=== PATIENT | female | born 1940 | race Caucasian/White ===

== ENCOUNTER 2016-07-22 14:00 | Outpatient (RCR) ==
[2014-11-23 01:57] VITALS: BMI 22.6
--- NOTE | 2016-07-20 14:29 | RS.OPPTEV2 ---
Date of Note: 07/20/16 Visit #: 1 Date of Evaluation: 07/20/16 Payer Source: MEDICARE Date of Onset/Injury/Change in Status: 06/27/15 Surgery Performed?: No Treatment Diagnosis: Neck pain History of Condition/Mechanism of Injury:: Patient states she has been having neck pain since she has been 21 yrs old. She states she has SINGH everyday but the intensity varies. This pain has began to worsen over the past yr. 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 He in January 2016. Her right shoulder also has pain and this occurred in the past 2 yrs. She also has tingling in the right hand. 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 She had OT with symptoms unable to be reversed. Prior Level of Function.....Patient was independent with: ADL's, Self Care, Work /Vocation, Caregiving, Ambulation/Mobility, Community Integration/Access Functional Limitations: Sleep, Self Care, ADL's, Reaching, Pushing, Pulling, Lifting, Carrying, Sitting, Bending, Squatting, Ambulation, Community Access/ Integration Current Subjective/complaints:: I am getting worse and I need some help. Treatment Side (optional): Right Medical History Medical History: Unremarkable, Arthritis Surgical History: Cholecystectomy, Hysterectomy, Other Surgical History Comments:: Tumor removed from her uterus years ago. It was benign. Smoking Status: Former smoker Pain Assessment - Pain Description Pain Location: Neck and right shoulder pain. Pain Description: Burning, Throbbing, Aching Pain Description: Constant pain Current Pain Intensity: 6/10 Worst Pain Intensity: 12/10 Functional Outcome Measure Neck Disability Index: 18 (36%) - G Codes & Severity Modifier G Codes & Modifier: Eval - Carrying, Moving & Handline Objects - CJ. Goal - CI Source of G Code score: NDI Observation - Observation Posture: Rounded Shoulders, Decreased Cervical Lordosis Handedness: Right General Range of Motion: BUEs are WNLs Muscle Strength: MMT of BUEs reveals increased pian with testing so this was not continued. - ROM Cervical Flexion: 12 (degrees) Cervical Extension: 5 (degrees) Cervical Spine Range of Motion Limitations: Pain - Strength Comments: Decreased pain with distraction. Airworthiness Inspector Strength Left Hand Airworthiness Inspector Strength: 35# Right Hand Airworthiness Inspector Strength: 15# Palpation Palpation Findings: Tenderness (Tenderness over the cervical and upper trap muscles as well as right rhomboid area.), Trigger Point (right middle trap and right levator scapulae ) Sensation - Sensation Right Upper Extremity: Impaired Left Upper Extremity: Impaired Sensation Description: [place] Comments: Right hand is worse than the left. - Traction Treatment Method: Manual Patient Position: Supine Duration of treatment: 10 Interventions - Exercise/Activities/Manual Therapy Exercises/Activities: NA Manual Therapy: Manual cervical traction and cervical lateral glides with decreased movement on the left. 1st rib mobilization on the right also performed. Pt reports complete relief of pain following manual therapy. Total minutes of Manual Therapy: 18 - Charges Total Direct Minutes: 20 Total Treatment Time: 60 Procedures billed for this date of service:: PT Eval (Mod) & manual therapy Assessment Assessment: Neck and right shoulder pain, decreased CROM, weakness of neck and shoulders. Patient Education: Education of diagnosis, Body/Joint mechanics, Activity Modification, Education of Plan of Care Rehab Potential: Good Short Term Goals Goal #1: Patient having SINGH less than daily. Goal to be met by: 08/06/16 Goal #2: Sleep disturbance is only minimal. Goal to be met by: 08/06/16 Goal #3: Patient is independent in basic CROM ex. Goal to be met by: 08/06/16 Goal #4: Eliminate right shoulder pain. Goal to be met by: 08/06/16 Radiation Oncology Nurse Goals Goal #1: Sleep without interruption of pain. Goal to be met by: 09/03/16 Goal #2: CROM WFLs Goal to be met by: 09/03/16 Goal #3: Cervical strength 4+/5 in all planes to decrease neck fatigue. Goal to be met by: 09/03/16 Goal #4: Independent with DC HEP to maintain status. Goal to be met by: 09/03/16 Plan - Treatment to be Provided Procedures: Therapeutic Exercises, Therapeutic Activity, Manual Therapy, Massage , Patient Education Modalities: Electrical Stimulation, Ultrasound/Phonophoresis, Class IV Laser, Cryotherapy, Hot Packs, Mechanical Traction - Treatment Plan Frequency: 2 X week Duration: 6 weeks ORDER # VISITS AND/OR THROUGH DATE: 09/03/2016 - Treatment Code (1) Cervical radiculopathy Comments: M54.12
--- NOTE | 2016-07-22 16:08 | RS.OPPTDN ---
Subjective Date of Note: 07/22/16 Visit #: 2 Date of Evaluation: 07/20/16 Payer Source: MEDICARE Treatment Diagnosis: Neck pain Current Subjective/complaints:: Patient says her neck pain is unchanged. States that she has had a SINGH for two days. Reports she uses heat at home for pain relief. Pain Assessment - Pain Description Pain Location: C/c is SINGH. Neck and right shoulder pain. Pain Description: Burning, Throbbing, Aching Pain Description: Constant pain Current Pain Intensity: 6/10 - Treatment Modality: Ultrasound Parameters/Method Applied: 1.5 w/cm2 x 10 mins bilateral UT continuous Patient Position: Sitting - Heat/Cryotherapy Treatment: Hot Pack (15 mins cervical in supine) Interventions - Exercise/Activities/Manual Therapy Exercises/Activities: NA Manual Therapy: Patient received manual cervical traction and passive stretching /STM for UT. 16 mins - Charges Total Direct Minutes: 26 Total Treatment Time: 41 Procedures billed for this date of service:: MT, u/s, HP Assessment: Patient experiencing mod neck pain bilaterally with SINGH lasting 2 days. Since treatment today, she admits improved pain and ISNGH intensity. She should continue to benefit from modalities and manual therapy. Patient Education: Education of diagnosis, Body/Joint mechanics, Home Exercise Program, Home Safety, Activity Modification, Education of Plan of Care Short Term Goals Goal #1: Patient having SINGH less than daily. Goal to be met by: 08/06/16 Goal #2: Sleep disturbance is only minimal. Goal to be met by: 08/06/16 Goal #3: Patient is independent in basic CROM ex. Goal to be met by: 08/06/16 Goal #4: Eliminate right shoulder pain. Goal to be met by: 08/06/16 Jail Goals Goal #1: Sleep without interruption of pain. Goal to be met by: 09/03/16 Goal #2: CROM WFLs Goal to be met by: 09/03/16 Goal #3: Cervical strength 4+/5 in all planes to decrease neck fatigue. Goal to be met by: 09/03/16 Goal #4: Independent with DC HEP to maintain status. Goal to be met by: 09/03/16 Plan PLAN OF CARE EXPIRES ON:: 09/03/16 ORDER # VISITS AND/OR THROUGH DATE: 09/03/2016 PLAN: Continue Plan of Care
--- NOTE | 2016-07-26 14:26 | RS.CXNS ---
Date of scheduled appointment: 07/26/16 Type: No Show
== END 2016-07-27 ==
PROVIDERS: ATTEND Physician Assistant Surgical
DX: M54.2 Cervicalgia (principal)

== ENCOUNTER 2016-08-06 13:00 | Outpatient (RCR) ==
[2014-11-23 01:57] VITALS: BMI 22.6
--- NOTE | 2016-07-28 15:25 | RS.CXNS ---
Date of scheduled appointment: 07/28/16 Type: Cancel Reason for Cancel/NS: sick
--- NOTE | 2016-07-30 16:34 | RS.OPPTDN ---
Subjective Date of Note: 07/30/16 Visit #: 3 Date of Evaluation: 07/20/16 Payer Source: MEDICARE Treatment Diagnosis: Neck pain Current Subjective/complaints:: Patient says her neck "feels weird" since she was sick last week and has not had a treatment since 07/22/16. She says treatment was helpful though for about one day. Pain Assessment - Pain Description Pain Location: C/c is SINGH. Neck and right shoulder pain. Pain Description: Constant pain Current Pain Intensity: Does not rate - Treatment Modality: Ultrasound Parameters/Method Applied: 1.5 w/cm2 x 10 mins bilateral UT in sitting Patient Position: Sitting - Heat/Cryotherapy Treatment: Hot Pack (cervical x 15 mins supine) Interventions - Exercise/Activities/Manual Therapy Exercises/Activities: NA Manual Therapy: Patient received manual cervical traction and passive stretching /STM for UT. 16 mins - Charges Total Direct Minutes: 26 Total Treatment Time: 41 Procedures billed for this date of service:: hp, u/s, MT Assessment: Patient admitted near full relief of pain upon her previous session and also experiences significant relief today. She demo tightness to bilateral UT today, but eases with modalities/MT. Patient should continue to improve next week. Patient Education: Education of diagnosis, Body/Joint mechanics, Home Exercise Program, Home Safety, Activity Modification, Education of Plan of Care Patient demonstrates compliance with HEP?: Yes Short Term Goals Goal #1: Patient having SINGH less than daily. Goal to be met by: 08/06/16 Goal #2: Sleep disturbance is only minimal. Goal to be met by: 08/06/16 Goal #3: Patient is independent in basic CROM ex. Goal to be met by: 08/06/16 Goal #4: Eliminate right shoulder pain. Goal to be met by: 08/06/16 Bag Liner Goals Goal #1: Sleep without interruption of pain. Goal to be met by: 09/03/16 Goal #2: CROM WFLs Goal to be met by: 09/03/16 Goal #3: Cervical strength 4+/5 in all planes to decrease neck fatigue. Goal to be met by: 09/03/16 Goal #4: Independent with DC HEP to maintain status. Goal to be met by: 09/03/16 Plan PLAN OF CARE EXPIRES ON:: 09/03/16 ORDER # VISITS AND/OR THROUGH DATE: 09/03/2016 PLAN: Continue Plan of Care
--- NOTE | 2016-08-02 15:31 | RS.OPPTDN ---
Subjective Date of Note: 08/02/16 Visit #: 4 Date of Evaluation: 07/20/16 Payer Source: MEDICARE Treatment Diagnosis: Neck pain Current Subjective/complaints:: Patient says this is the first time in a long time that she has not had daily SINGH's. She says she is pleased she is improving , but still has some "tender spots" to the R UT and mid scapula. Pain Assessment - Pain Description Pain Location: Neck and right shoulder pain. Pain Description: Constant pain Current Pain Intensity: Does not rate - Treatment Modality: Ultrasound Parameters/Method Applied: 1.5 w/cm2 continuous to the bilateral UT, more to the R x 12 mins Patient Position: Sitting - Heat/Cryotherapy Treatment: Hot Pack (20 mins to the cervical sitting) Interventions - Exercise/Activities/Manual Therapy Exercises/Activities: NA Manual Therapy: Patient received Trigger point work throughout the bilateral UT and rhomboids. She received passive stretching into SB, rotation. She performs shoulder shrugs and isometric cervical retraction 2x5. Total minutes of Manual Therapy: 15 - Charges Total Direct Minutes: 27 Total Treatment Time: 47 Procedures billed for this date of service:: hp, u/s, MT Assessment: Patient no longer having daily SINGH's, which she is very pleased about. She continues to demo mod muscle guarding to bilateral UT with 2-3 trigger points to the R side. She demo FHP and would benefit from continued postural exercises and modalities/MT. Patient Education: Education of diagnosis, Body/Joint mechanics, Home Exercise Program, Home Safety, Activity Modification, Education of Plan of Care Patient demonstrates compliance with HEP?: Yes Short Term Goals Goal #1: Patient having SINGH less than daily. Goal to be met by: 08/06/16 Progress towards Goal:: Progressing Goal #2: Sleep disturbance is only minimal. Goal to be met by: 08/06/16 Progress towards Goal:: Progressing Goal #3: Patient is independent in basic CROM ex. Goal to be met by: 08/06/16 Goal #4: Eliminate right shoulder pain. Goal to be met by: 08/06/16 Him Coder Goals Goal #1: Sleep without interruption of pain. Goal to be met by: 09/03/16 Goal #2: CROM WFLs Goal to be met by: 09/03/16 Goal #3: Cervical strength 4+/5 in all planes to decrease neck fatigue. Goal to be met by: 09/03/16 Goal #4: Independent with DC HEP to maintain status. Goal to be met by: 09/03/16 Plan PLAN OF CARE EXPIRES ON:: 09/03/16 ORDER # VISITS AND/OR THROUGH DATE: 09/03/2016 PLAN: Continue Plan of Care
--- NOTE | 2016-08-06 15:57 | RS.OPPTDN ---
Subjective Date of Note: 08/06/16 Visit #: 5 Date of Evaluation: 07/20/16 Payer Source: MEDICARE Treatment Diagnosis: Neck pain Current Subjective/complaints:: Patient states she was doing better, but recently had an increase in pain to her neck. Reports continued decrease in SINGH' s and is sleeping better. Pain Assessment - Pain Description Pain Location: Neck and right shoulder pain. Pain Description: more intermittent pain now Current Pain Intensity: Does not rate - Treatment Modality: Ultrasound Parameters/Method Applied: continuous @ 1.5 w/cm2 x 12 mins to the Bilateral UT and R shoulder x 5 mins in sitting. - Heat/Cryotherapy Treatment: Hot Pack (cervical in sitting x 15) Interventions - Exercise/Activities/Manual Therapy Exercises/Activities: NA Manual Therapy: Patient received Trigger point work throughout the bilateral UT and rhomboids. She received passive stretching into SB, rotation. She performs shoulder shrugs and isometric cervical retraction 2x5. Total minutes of Manual Therapy: 16 - Charges Total Direct Minutes: 33 Total Treatment Time: 48 Procedures billed for this date of service:: hp, u/s, MT Assessment: Patient experiencing less frequency of SINGH's and neck pain, but recently had an increase in neck pain and R shoulder pain today for unknown reasons. She has several trigger points to the R rhomboids and UT that were relieved with MT today. Patient Education: Education of diagnosis, Body/Joint mechanics, Home Exercise Program, Home Safety, Activity Modification, Education of Plan of Care Patient demonstrates compliance with HEP?: Yes Short Term Goals Goal #1: Patient having SINGH less than daily. Goal to be met by: 08/06/16 Progress towards Goal:: Progressing Goal #2: Sleep disturbance is only minimal. Goal to be met by: 08/06/16 Progress towards Goal:: Progressing Goal #3: Patient is independent in basic CROM ex. Goal to be met by: 08/06/16 Goal #4: Eliminate right shoulder pain. Goal to be met by: 08/06/16 Retirement Goals Goal #1: Sleep without interruption of pain. Goal to be met by: 09/03/16 Progress towards goal: Progressing Goal #2: CROM WFLs Goal to be met by: 09/03/16 Progress towards goal: Progressing Goal #3: Cervical strength 4+/5 in all planes to decrease neck fatigue. Goal to be met by: 09/03/16 Goal #4: Independent with DC HEP to maintain status. Goal to be met by: 09/03/16 Plan PLAN OF CARE EXPIRES ON:: 09/03/16 ORDER # VISITS AND/OR THROUGH DATE: 09/03/2016 PLAN: Continue Plan of Care
--- NOTE | 2016-08-10 11:09 | RS.CXNS ---
Date of scheduled appointment: 08/10/16 Type: Cancel Reason for Cancel/NS: sick
--- NOTE | 2016-08-13 08:33 | RS.CXNS ---
Date of scheduled appointment: 08/13/16 Type: Cancel Reason for Cancel/NS: Patient calls saying her mother is in the hospital and will be having surgery. She says she needs to be with her right now and was told to call back and we will try to re start her therapy with new dates if able.
== END 2016-08-24 ==
PROVIDERS: ATTEND Physician Assistant Surgical
DX: M54.2 Cervicalgia (principal)

== ENCOUNTER 2016-08-22 10:11 | Emergency (ER) ==
[2016-08-22 10:16] VITALS: BP 194/80; TEMP 97.7; BMI 28.7
--- NOTE | 2016-08-22 10:35 | ED.PDOC ---
General ED Provider: Dr. SIMONE YAO Chief Complaint: Head Injury Stated Complaint: Slipped and fell at home hurt head and neck, also pain right hip, did not LOC, Time Seen by Physician: 10:33 Mode of Arrival: Walk-In Information Source: Patient Primary Care Provider: CATHIE BRISCOE Nursing and Triage Documentation Reviewed and Agree: Yes Trauma/Injury Complaint Exam - Head Injury Complaint/Exam Location of Pain: Reports: Scalp Mechanism of Injury: Reports: Trauma Symptoms Are: Still present Initial Severity: Mild Current Severity: Mild Character: Reports: Dull Aggravating: Reports: None Alleviating: Reports: None Associated Signs and Symptoms: Reports: Neck pain. Denies: Confusion, Memory loss, Seizure, Epistaxis, Dental malocclusion, Nausea, Vomiting Loss of Consciousness: None SDH Risk Factors: Present: None Cervical Spine Injury Risk Factors: Present: None Related Surgical History: Reports: None Head Injury Findings: Present: Normal findings Focal Weakness: Present: None Focal Sensory Loss: Present: None Gait: Normal Gag Reflex Present: No Finger to Nose: Normal Rhomberg Test Positive: Yes Babinski Sign: Negative Right, Negative Left Differential Diagnoses: Sprain, Trauma Review of Systems - Review Of Systems Constitutional: Reports: No symptoms Eyes: Reports: No symptoms Ears, Nose, Mouth, Throat: Reports: No symptoms Respiratory: Reports: No symptoms Cardiac: Reports: No symptoms GI: Reports: No symptoms : Reports: No symptoms Musculoskeletal: Reports: Joint pain Skin: Reports: No symptoms Neurological: Reports: No symptoms Endocrine: Reports: No symptoms Hematologic/Lymphatic: Reports: No symptoms All Other Systems: Reviewed and Negative Past Medical History - Past Medical History Previously Healthy: No Endocrine: Reports: Dyslipidemia Cardiovascular: Reports: Hypertension Respiratory: Reports: None Hematological: Reports: None Gastrointestinal: Reports: None Genitourinary: Reports: None Neuro/Psych: Reports: Anxiety Musculoskeletal: Reports: Back Pain, Joint Pain Cancer: Reports: None Last Menstrual Period: n/a - Surgical History General Surgical History: Reports: None - Family History Family History: Reports: None - Social History Smoking Status: Never smoker Hx Substance Use: No Alcohol Screening: None Physical Exam - Physical Exam Appearance: Well-appearing, No pain distress, Well-nourished Eyes: EMMETT, EOMI, Conjunctiva clear ENT: Ears normal, Nose normal, Oropharynx normal Respiratory: Airway patent, Breath sounds clear, Breath sounds equal, Respirations nonlabored Cardiovascular: RRR, Pulses normal, No rub, No murmur GI/: Soft, Nontender, No masses, Bowel sounds normal, No Organomegaly Musculoskeletal: Normal strength, ROM intact, No edema, No calf tenderness Skin: Warm, Dry, Normal color Neurological: Sensation intact (hematoma back of the head, ), Motor intact, Reflexes intact, Cranial nerves intact, Alert, Oriented Psychiatric: Affect appropriate, Mood appropriate Interpretation - Radiology Interpretation Radiology Interpretation By: Radiologist Exam Interpreted: CT Scan Critical Care Note - Critical Care Note Total Time (mins): 0 Course - Course Orders, Labs, Meds: Orders Category Date Time Status CT CERVICAL SPINE W/O CONTRAST Stat RADS 08/22/16 10:[address] HEAD W/O CONTRAST Stat RADS 08/22/16 10:[address] HIP RIGHT WITHOUT CONTRAST Stat RADS 08/22/16 10:32 Completed Vital Signs: Temp Pulse Resp BP Pulse Ox 08/22/16 10:13 97.7 F 100 H 20 194/80 H 97 Departure - Departure Time of Disposition: 11:18 Disposition: HOME SELF-CARE Discharge Problem: Injury of head Instructions: Fall Prevention for Older Adults (ED) Condition: Stable Pt referred to PMD for follow-up: Yes Additional Instructions: rest if not better needs f/u Allergies/Adverse Reactions: Allergies [facility] Adverse Reaction (Verified 08/22/16 10:22) lisinopril Adverse Reaction (Verified 08/22/16 10:22) morphine Adverse Reaction (Verified 10/11/13 13:36) Sulfa (Sulfonamide Antibiotics) Adverse Reaction (Verified 10/11/13 13:36) Home Medications: Ambulatory Orders Alprazolam [Xanax] 0.5 mg PO BID 10/11/13 Cholecalciferol (Vitamin D3) [Vitamin D] 1,000 unit PO DAILY 10/11/13 Folic Acid 0.4 mg PO DAILY 10/11/13 Hydrochlorothiazide 12.5 mg PO DAILY PRN 10/11/13 Meloxicam [Meloxicam] 7.5 mg PO DAILY 10/11/13 Aspirin 81 mg PO DAILY 08/22/16 Hydrocodone Bit/Acetaminophen [[place] 7.5-325] 1 tab PO BID 08/22/16 Disposition Discussed With: Patient, Family
--- NOTE | 2016-08-22 11:03 | CT ---
EXAM: CT head without contrast HISTORY: Trauma COMPARISON: Brain MRI from 05/24/2016 TECHNIQUE: Helical axial CT of the head was performed without contrast. Coronal and sagittal reconst ructions were performed. FINDINGS: There is no hemorrhage, mass, midline shift, abnormal extra-axial fluid collection, hydrocephalus or evolving ischemia. The tracy-white matter junction is well maintained. There is some mild generalize d atrophy present. Brain parenchyma ventricles and sulci are otherwise normal. There are no acute calvarial lesions. Visualized orbits and globes are unremarkable. The mastoid a ir cells demonstrate no significant soft tissue opacification. The visualized paranasal sinuses show no air-fluid levels. IMPRESSION: No acute intracranial abnormality.
--- NOTE | 2016-08-22 11:06 | CT ---
CT cervical spine without contrast HISTORY: Injury and pain TECHNIQUE: CT of the cervical spine with multiplanar reformations. FINDINGS: Reformatted images demonstrate normal alignment with preservation of vertebral body heigh t. No significant degenerative change. No fracture seen on the axial or reformatted images. No acut e surrounding soft tissue abnormalitites. Lung apices are clear. IMPRESSION: No acute findings in the cervical spine.
--- NOTE | 2016-08-22 11:13 | CT ---
EXAM: CT of the hip without contrast TECHNIQUE: Helical axial CT of the right hip was performed without contrast with coronal and sagitt al reconstructions. COMPARISON: Plain film of the right hip from 08/27/2013 HISTORY: Trauma FINDINGS: There is no hip fracture identified. Alignment is anatomic. There is no dislocation. T here is fair amount of degenerative change noted involving the right hip joint. The acetabulum is i ntact and the pubic rami are intact as well. There is no evidence for pelvic hematoma. No acute sof t tissue abnormalities are present. There is atherosclerotic vascular calcifications noted. There is degenerative changes seen in the lower lumbar region partially visualized. IMPRESSION: No acute fracture of the right hip.
== END 2016-08-22 11:47 | disposition home or self-care (01) ==
LOC: ED 10:11
DX: S09.90XA Unspecified injury of head, initial encounter (principal); S19.9XXA Unspecified injury of neck, initial encounter; M25.551 Pain in right hip; W01.0XXA Fall on same level from slipping, tripping and stumbling without subsequent striking against object, initial encounter
CPT/HCPCS: 99283

== ENCOUNTER 2017-03-04 10:30 | Outpatient (CLI) ==
--- NOTE | 2017-03-04 12:18 | MAMMO ---
EXAM: Digital screening mammogram HISTORY: Screening COMPARISON: 10/27/2015 FINDINGS: Digital MLO and CC views of the right and left breast were performed. Computer aided det ection was utilized. There are scattered fibroglandular densities. There is no evidence for mass, a symmetry, distortion, or suspicious calcifications in either breast. IMPRESSION: 1. No evidence of malignancy in the right or left breast. 2. Annual screening mammogram is recommended in one year. BIRADS category 1, negative examination
== END 2017-03-04 10:31 | disposition home or self-care (01) ==
LOC: RAD 10:30
PROVIDERS: ATTEND Internal Medicine
DX: Z12.31 Encounter for screening mammogram for malignant neoplasm of breast (principal)
CPT/HCPCS: 77067

== ENCOUNTER 2017-03-29 10:22 | Outpatient (CLI) | payer OTHER ==
--- NOTE | 2017-03-29 11:10 | DEXA ---
EXAM: DEXA scan. HISTORY: Osteoporosis. COMPARISON: 10/15/2014. TECHNIQUE: Swipely Primo [id number]. DEXA scan lumbar spine performed. Quality of the study is good. BMD is 1.302 grams per square centi meter. T-score 1.0. Z-score 2.5. DEXA scan hips performed. Quality of the study is good. BMD 0.736 grams per square centimeter. T-sc ore -2.2. Z-score -0.6. IMPRESSION: According to the World Health Organization classification, lumbar spine bone mineral density is rena l. Hip bone mineral density demonstrates osteopenia, with increased fracture risk. Ten-year major o steoporotic fracture risk is 13.9%. Ten-year hip fracture risk is 3.7%. Since the prior study, ther e has been no significant interval change.
== END 2017-03-29 10:23 | disposition home or self-care (01) ==
LOC: RAD 10:22
PROVIDERS: ATTEND Internal Medicine
DX: M81.0 Age-related osteoporosis without current pathological fracture (principal)

== ENCOUNTER 2017-05-11 11:59 | Outpatient (CLI) ==
[2017-05-11 13:19] LABS: BASOPHILS # (AUTO) 0.1 K/uL (0-0.2); HEMATOCRIT 41.1 % (37.0-47.0); HEMOGLOBIN 13.5 g/dl (12.0-16.0); IMMATURE GRANULOCYTE % (AUTO) 0.4 % (0.0-5.0); LYMPHOCYTES # (AUTO) 1.9 K/uL (0.60-3.4); LYMPHOCYTES % (AUTO) 18.9 (10.0-50.0); MEAN CORPUSCULAR HEMOGLOBIN 27.6 pg (27.0-31.0); MEAN CORPUSCULAR HGB CONC 32.8 (31.8-35.4); MONOCYTES # (AUTO) 0.8 K/uL (0.4-2.0); MONOCYTES % (AUTO) 7.5 (0-10); NEUTROPHILS # (AUTO) 7.4 K/ul (2.0-6.9); NEUTROPHILS % (AUTO) 72.2; PLATELET COUNT 482 10^3/uL (140-440); RED BLOOD COUNT 4.89 10^6/ul (4.20-5.40); WHITE BLOOD COUNT 10.19 K/ul (4.6-10.2)
--- NOTE | 2017-05-11 13:25 | US ---
EXAM: ULTRASOUND CAROTID DUPLEX, BILATERAL HISTORY: Dizziness, weakness FINDINGS: Fuentes-scale ultrasound, color Doppler and spectral analysis was performed. Velocities are in meters per second. By fuentes scale and color Doppler imaging, there was prominent heterogeneous atherosclerotic plaque dep osition bilaterally mainly within the carotid bulbs and proximal internal carotid arteries measuring up to at least 50% vessel diameter on the right. RIGHT: External carotid artery peak systolic velocity: 1.2 Common carotid artery peak systolic velocity/end diastolic velocity: 0.6/0.2 Internal carotid artery peak systolic velocity: 1.5 ICA/CCA peak systolic velocity ratio: 2.4 ICA end diastolic velocity: 0.3 LEFT: External carotid artery peak systolic velocity: 1.4 Common carotid artery peak systolic velocity/end diastolic velocity: 0.8/0.1 Internal carotid artery peak systolic velocity: 1.3 ICA/CCA peak systolic velocity ratio: 1.6 ICA end diastolic velocity: 0.2 The right and left vertebral arteries were antegrade. IMPRESSION: 1. By fuentes scale and color Doppler imaging, there was prominent heterogeneous atherosclerotic plaque deposition bilaterally mainly within the carotid bulbs and proximal internal carotid arteries measur ing up to at least 50% vessel diameter on the right. 2. Right internal carotid artery peak systolic velocity of 1.5 meters per second falls within the mo derate range of stenosis. Moderate indicates 50 - 69% vessel diameter. The right-sided ICA/CCA peak systolic velocity ratio 2.4 correlates with this. 3. No definite hemodynamically significant stenosis within the left carotid system. 4. Both vertebral arteries were antegrade.
[2017-05-11 14:57] LABS: ALBUMIN 3.6 g/dL (3.4-5.0); ALBUMIN/GLOBULIN RATIO 1.09; ANION GAP 10.5; BILIRUBIN,TOTAL 0.42 mg/dL (0.00-1.20); BUN/CREATININE RATIO 18.51; CALCIUM 10.2 mg/dL (8.2-10.2); CHOL/HDL RATIO 3.3 (4.5-5.5); CREATININE 0.81 mg/dL (0.60-1.30); POTASSIUM 3.5 mmol/L (3.5-5.10); TOTAL PROTEIN 6.9 g/dL (5.8-8.1)
--- NOTE | 2017-05-11 16:58 | MRI ---
EXAM: Brain MRI without contrast. HISTORY: Dizziness and giddiness. COMPARISON: Head CT 08/02/2078 brain MRI with 05/24/2016. TECHNIQUE: Multiplanar, multisequence MR images were acquired of the brain without contrast. FINDINGS: The midline structures are central and the craniocervical junction is unremarkable. There is mild enlargement of the subarachnoid space over both frontal lobes at the convexity. The ventric les are normal in size. The sulci and cerebellar fissures are prominent. These findings are compati ble with age related involutional changes. The brain parenchyma has no restricted diffusion to suggest acute hypoperfusion or infarction. Small T2 hyperintensities are present in the supratentorial white matter compatible with minor to mild rich komalacia. A few dilated perivascular spaces are noted in the parietal occipital periventricular whi te matter. The corpus callosum has a normal configuration. The pituitary gland is low normal in siz e. There are no intraorbital masses. There has been previous lens surgery bilaterally. Mild mucosal thickening is present in the a minor number of the right mastoid air cells. The paranas al sinuses and left mastoid air cells are clear. Flow voids are present in the major intracranial arteries and dural venous sinuses. IMPRESSION: 1. No intracranial mass, hemorrhage or acute cerebral infarct. 2. Age related involutional changes and minor to mild chronic ischemic small vessel disease.
== END 2017-05-11 12:00 | disposition home or self-care (01) ==
LOC: RAD 11:59
PROVIDERS: ATTEND Emergency Medicine
DX: R42 Dizziness and giddiness (principal); I10 Essential (primary) hypertension
CPT/HCPCS: 36415; 80053; 80061; 84443; 85025

== ENCOUNTER → 2017-05-25 | Outpatient (POV) | LOC: OUTPT 00:01 | PROVIDERS: ATTEND Otolaryngology | DX: R42 Dizziness and giddiness (principal) | CPT/HCPCS: 92557; 92567 ==

== ENCOUNTER 2017-09-09 13:15 | Outpatient (CLI) | END 2017-09-09 13:16 | disposition home or self-care (01) | LOC: RHC 13:15 → RHC-LAB 13:16 | PROVIDERS: ATTEND Emergency Medicine | DX: E78.5 Hyperlipidemia, unspecified (principal); I10 Essential (primary) hypertension; M47.26 Other spondylosis with radiculopathy, lumbar region; R10.84 Generalized abdominal pain; Z20.5 Contact with and (suspected) exposure to viral hepatitis | CPT/HCPCS: 36415; 80053; 80061; 80074; 84443; 85025 ==

== ENCOUNTER 2017-11-18 08:55 | Outpatient (CLI) | payer OTHER ==
[2017-11-18] MEDS ORDERED: RECLAST 5 MG/100 ML SOLUTION 5 MG in PREMIX INFUSION 100 ML VIAL 1 VIAL IV ONE (10:33)
[2017-11-18 10:41] VITALS: BP 160/92; TEMP 97.8
== END 2017-11-18 11:35 | disposition home or self-care (01) ==
LOC: OPMED 08:55
PROVIDERS: ATTEND Emergency Medicine
DX: M81.0 Age-related osteoporosis without current pathological fracture (principal); I10 Essential (primary) hypertension
CPT/HCPCS: 36415; 80053; 96365

== ENCOUNTER 2018-03-14 10:16 | Outpatient (CLI) ==
--- NOTE | 2018-03-15 10:31 | MAMMO ---
EXAM: Bilateral digital screening mammogram (2-D and 3-D) History: Screening Comparison: Bilateral mammogram 03/04/2017 Findings: MLO and CC views of bilateral breasts demonstrate scattered fibroglandular breast parenchy ma. CAD was reviewed by the radiologist. Tomosynthesis was performed. Stable benign bilateral daniel st calcifications. There are no dominant masses, no suspicious microcalcifications and no architectu ral distortions Impression: Benign stable mammogram. Recommend followup routine screening mammography in 1 year. BIRADS 2
== END 2018-03-14 10:17 | disposition home or self-care (01) ==
LOC: RAD 10:16
PROVIDERS: ATTEND Emergency Medicine
DX: Z12.31 Encounter for screening mammogram for malignant neoplasm of breast (principal)
CPT/HCPCS: 77067

== ENCOUNTER 2018-08-04 06:44 | Outpatient (CLI) | payer OTHER ==
--- NOTE | 2018-08-04 09:57 | STRESSMOD ---
Date of Test: 08/04/18 Ordering Physician: DR. CATHIE BRISCOE Occupation: RETIRED Reason for Exam: SOB, CAROTID STENOSIS Smoking History: NONE Height: 66" Weight: 160 LBS Current Medications: ASPIRIN, VITAMIN D, LORTAB, XANAX Resting EKG: SINUS RHYTHM/ NO ACUTE CHANGES Target Heart Rate:122/144 S-T SEGMENT STAGE MPH/GRADE HEART RATE BPM BLOOD PRESSURE mmhg RHYTHM +/- ELEVATION DEPRESSION SYMPTOMS At Rest 75 BPM 122/86 MMHG SR X NONE 1 1.7/0% 84 BPM 146/82 MMHG SR X NONE 2 1.7/5% 93 BPM 156/76 MMHG SR X NONE 3 1.7/10% 4 2.5/12% 5 3.4/14% Immediately After 100 BPM 164/76 MMHG SR X FATIGUE Minutes Post Exercise 4:00 68 BPM 136/86 MMHG SR X NONE Minutes Post Exercise DURATION OF EXERCISE: 8:04 MAXIMUM HEART RATE REACHED: 100 BPM REASON FOR TERMINATION: FATIGUE 95% OXYGEN SATURATION WITH EXERCISE ON ROOM AIR METS 4.8 INTERPRETATION: 1. NO EVIDENCE OF ISCHEMIA FROM HEART RATE 75 BPM TO 100 BPM 2. NO CHEST PAIN OR DISCOMFORT 3. NO ARRHYTHMIAS 4. BLOOD PRESSURE RESPONSE: NORMAL NORMAL LEFT VENTRICULAR CONTRACTILITY--RESTING AND POST EXERCISE MTDD
--- NOTE | 2018-08-07 11:13 | ECHOSTRESS ---
Date of Exam: 08/04/18 Ordering Physician: DR. CATHIE BRISCOE Reason for Echo: SOB, CAROTID STENOSIS, STRESS TEST--NO ISCHEMIA M-Mode Normal Adult Results LV Dimensions Normal Adult Results AoV Opening excursions >1.6 LVEDD-base- 3.5-5.8 Ao root dimensions 2.0-3.7 LVESD-base- 3.1-4.6 L. Atrium dimensions 1.9-3.8 Post. Wall thickness 0.8-1.1 IV septum (thickness) 0.7-1.2 Post. Wall excursion 0.72-1.3 Septal motion Systolic motion R. Ventricular cavity 1.5-2.0 LVEF 60% Paradoxical septal wall motion 2-D: NORMAL LEFT VENTRICULAR CONTRACTILITY--RESTING AND POST EXERCISE M-MODE: MV: AV: TV: PV: CHAMBER SIZE: WALL MOTION: NORMAL LEFT VENTRICULAR CONTRACTILITY--RESTING AND POST EXERCISE PERICARDIUM: INTERPRETATION: 1. NORMAL LEFT VENTRICULAR CONTRACTILITY--RESTING AND POST EXERCISE MTDD
--- NOTE | 2018-08-07 11:17 | ECHO2D ---
Date of Exam: 08/04/18 Ordering Physician: DR. CATHIE BRISCOE Room #: OP Reason for Echo: SOB, CAROTID STENOSIS M-Mode Normal Adult Results LV Dimensions Normal Adult Results AoV Opening excursions >1.6 >1.6 LVEDD-base- 3.5-5.8 4.0 Ao root dimensions 2.0-3.7 3.3 LVESD-base- 3.1-4.6 L. Atrium dimensions 1.9-3.8 4.5 Post. Wall thickness 0.8-1.1 1.2 IV septum (thickness) 0.7-1.2 1.3 Post. Wall excursion 0.72-1.3 NORMAL Septal motion NORMAL Systolic motion R. Ventricular cavity 1.5-2.0 NORMAL LVEF 60% 61% Paradoxical septal wall motion NORMAL 2-D : NORMAL VALVES--NORMAL LEFT VENTRICULAR CONTRACTILITY--ENLARGED LEFT ATRIAL CAVITY--NO EFFUSION, NO THROMBUS, NORMAL VALVES M-MODE: MV: NORMAL AV: NORMAL TV: NORMAL PV: CHAMBER SIZE: ENLARGED LEFT ATRIAL CAVITY WALL MOTION: NORMAL PERICARDIUM: NORMAL INTERPRETATION: 1. LEFT VENTRICULAR HYPERTROPHY WITH ENLARGED LEFT ATRIAL CAVITY 2. NORMAL VALVES MTDD
== END 2018-08-04 06:45 | disposition home or self-care (01) ==
LOC: CAR 06:44
PROVIDERS: ATTEND Internal Medicine
DX: R06.02 Shortness of breath (principal); I65.29 Occlusion and stenosis of unspecified carotid artery
CPT/HCPCS: 93005; 93010

== ENCOUNTER 2018-12-15 07:02 | Outpatient (CLI) ==
--- NOTE | 2018-12-15 14:22 | DI ---
Examination: Chest two views Clinical history: Cough There is hyperinflation of the lungs. Heart size is normal. There is aortic calcinosis. Biapical p leural thickening is evident. There is no consolidative infiltrate or effusion. No vascular congest ion. Impression: 1. 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 No pneumonia.
== END 2018-12-15 07:03 | disposition home or self-care (01) ==
LOC: CAR 07:02
PROVIDERS: ATTEND Internal Medicine
DX: R06.02 Shortness of breath (principal); I65.29 Occlusion and stenosis of unspecified carotid artery; R05 Cough
CPT/HCPCS: 93005; 93010